=== PATIENT | male | born 1965 | race Caucasian/White ===

== ENCOUNTER 2016-10-21 09:52 | Inpatient (IN) | payer SELFPAY ==
[~2016-10-21] VITALS: Ht 167.6 cm; Wt 52.6 kg
[2016-10-21 10:05] VITALS: BP 126/84; PULSE 86; RESP 16; TEMP 99.5; O2SAT 97
[2016-10-21] MEDS ORDERED: AMPICILLIN-SULBACTAM INJ 3 GM in SODIUM CHLORIDE 0.9% INJ 100 ML IV ONE (10:30)
[2016-10-21] MEDS ORDERED: CLINDAMYCIN INJ 900 MG in SODIUM CHLORIDE 0.9% INJ 100 ML IV ONE (10:30)
[2016-10-21] MEDS ORDERED: SODIUM CHLOR 0.9% 1000 ML INJ 1,000 ML IV ONE (10:30)
[2016-10-21 10:52] LABS: AUTOMATED NEUTROPHIL # 4.5 TH/MM3 (1.8-7.7); BASOPHIL % 0.3 % (0.0-2.0); EOSINOPHIL % 0.1 % (0.0-4.0); HEMATOCRIT 46.7 % (39.0-51.0); HEMO FLAGS DIFF FINAL; LYMPH % 10.3 % (9.0-44.0); LYMPHOCYTE # 0.6 TH/MM3 (1.0-4.8); MEAN CELL VOLUME 89.9 FL (80.0-100.0); MEAN CORPUSCULAR HEMOGLOBIN 29.1 PG (27.0-34.0); MEAN CORPUSCULAR HGB CONC 32.4 % (32.0-36.0); MONO % 10.1 % (0.0-8.0); NEUT % 79.2 % (16.0-70.0); PLATELET COUNT 193 TH/MM3 (150-450); RED CELL DISTRIBUTION WIDTH 13.3 % (11.6-17.2); WHITE BLOOD COUNT 5.7 TH/MM3 (4.0-11.0)
[2016-10-21 11:00] LABS: CHLORIDE 98 MEQ/L (98-107); POTASSIUM 3.6 MEQ/L (3.5-5.1); SODIUM (NA) 136 MEQ/L (136-145)
[2016-10-21 11:04] LABS: ANION GAP 9 MEQ/L (5-15); APTT (PATIENT) 31.6 SEC (24.3-30.1); BICARBONATE 29.4 MEQ/L (21.0-32.0); BLOOD UREA NITROGEN 15 MG/DL (7-18); PROTHROMBIN TIME - PATIENT 10.6 SEC (9.8-11.6)
[2016-10-21 11:07] LABS: ALT (GPT) 78 U/L (12-78); AST (GOT) 48 U/L (15-37); GLOMERULAR FILTRATION RATE 81 ML/MIN (>89)
[2016-10-21 11:08] LABS: TOTAL BILIRUBIN ADULT 0.4 MG/DL (0.2-1.0)
[2016-10-21 11:10] LABS: ALKALINE PHOSPHATASE 69 U/L (45-117)
[2016-10-21] MEDS ORDERED: HYDROmorphone HCL PF 1 MG/ML VIAL IV PUSH ONE ×2 (11:15→13:15)
[2016-10-21] MEDS ORDERED: IOHEXOL 350 MG/ML 10 ML VIAL (for RAD DIAG) IV ONE (11:20)
--- NOTE | 2016-10-21 11:55 | RADRPT ---
EXAM DATE/TIME: 10/21/2016 10:57 [facility] COMPARISON: No previous studies available for comparison. INDICATIONS : Left neck pain for 3 days. IV CONTRAST: 65 cc Omnipaque 350 (iohexol) IV RADIATION DOSE: 9.36 CTDIvol (mGy) MEDICAL HISTORY : None SURGICAL HISTORY : None. ENCOUNTER: Initial ACUITY: 3 days PAIN SCALE: 6/10 LOCATION: Left neck TECHNIQUE: Volumetric scanning of the neck was performed. Using automated exposure control and adjustment of th e mA and/or kV according to patient size, radiation dose was kept as low as reasonably achievable to obtain optimal diagnostic quality images. DICOM format image data is available electronically for r eview and comparison. FINDINGS: The examination demonstrates a 3.5 x 3.4 cm heterogeneously enhancing soft tissue/ mass involving the left parapharyngeal space and left tonsillar pillar. There is decreased attenuation centrally within this. This extends down inferiorly to involve the left side of the larynx. There are some moderately enlarged, enhancing nodes evident in the jugular norma chain on the left. The largest measures 1.6 x 0.6 CM. It is possible this represents tonsillar abscess however, these findings are concerning for malignancy.. The soft tissues of the nasopharynx are intact. The parotid and submandibular glands are intact. The visualized portions of sinuses clear. The limited portion of brain parenchyma visualized is unremarkable. The visualized osseous structures are intact. CONCLUSION: 1. The exam demonstrates a large area of fluctuant tissue/ mass involving the left tonsillar pillar, the parapharyngeal space on the left and extending down to the superior aspect of the left side of th e larynx. There are some enlarged, enhancing jugular nodes on the left as well. It is possible this r epresents tonsillar abscess however, These findings are suspicious for malignancy. 2. Note is made of a 1 cm node in the jugular norma chain on the right as well. This is indeterminate by CT imaging. Teofilo Wagner MD on October 21, 2016 at 11:41 Board Certified Radiologist. This report was verified electronically.
[2016-10-21 12:39] VITALS: BP 127/76; PULSE 80; RESP 18; O2SAT 97
--- NOTE | 2016-10-21 12:56 | PD ---
HPI Chief Complaint: Oral / Dental Pain or Problem Time Seen by Provider: 10:14 Travel History International Travel<30 days: No Contact w/Intl Traveler<30days: No Traveled to known affect area: No History of Present Illness HPI C/O 3 DAY H/O SORE THROAT, THOUGHT IT WAS STREP AND WENT TO URGENT CARE WHO RECC HE COME TO ER BECAUSE IT LOOK LIKE AN ABSCESS....PT DENIES FEVER, PAINFUL TO SWALLOW AND CANNOT EAT. PFSH Past Medical History Hx Anticoagulant Therapy: No Diabetes: No Social History Alcohol Use: Yes (SOCIALLY) Tobacco Use: No Substance Use: No Allergies-Medications (Allergen,Severity, Reaction): Coded Allergies: No Known Allergies (Unverified , 10/21/16) Reported Meds & Prescriptions Reported Meds & Active Scripts Active Review of Systems Except as stated in HPI: all other systems reviewed are Neg HENT: Positive: Sore Throat Physical Exam Narrative GENERAL: SKIN: Warm and dry. HEAD: Atraumatic. Normocephalic. EYES: Pupils equal and round. No scleral icterus. No injection or drainage. ENT: No nasal bleeding or discharge. Mucous membranes pink and moist. NECK: Trachea midline. No JVD. LEFT SIDED NECK MASS CARDIOVASCULAR: Regular rate and rhythm. RESPIRATORY: No accessory muscle use. Clear to auscultation. Breath sounds equal bilaterally. GASTROINTESTINAL: Abdomen soft, non-tender, nondistended. Hepatic and splenic margins not palpable. MUSCULOSKELETAL: Extremities without clubbing, cyanosis, or edema. No obvious deformities. NEUROLOGICAL: Awake and alert. No obvious cranial nerve deficits. Motor grossly within normal limits. Five out of 5 muscle strength in the arms and legs. Normal speech. PSYCHIATRIC: Appropriate mood and affect; insight and judgment normal. Data Data Last Documented VS Vital Signs Date Time Temp Pulse Resp B/P Pulse Ox O2 Delivery O2 Flow Rate FiO2 10/21/16 11:42 16 10/21/16 10:05 99.5 86 126/84 97 Orders Complete Blood Count With Diff (10/21/16 10:19) Comprehensive Metabolic Panel (10/21/16 10:19) Prothrombin Time / Inr (Pt) (10/21/16 10:19) Act Partial Throm Time (Ptt) (10/21/16 10:19) Ct Soft Tiss Neck W Iv Cont (10/21/16 ) Ampicillin-Sulbactam Inj (Unasyn Inj) (10/21/16 10:30) Clindamycin Inj (Cleocin Inj) (10/21/16 10:30) Lactic Acid Sepsis Protocol (10/21/16 10:19) Sodium Chlor 0.9% 1000 Ml Inj (Ns 1000 M (10/21/16 10:30) Blood Culture (10/21/16 10:19) Hydromorphone Pf Inj (Dilaudid Pf Inj) (10/21/16 11:15) Iohexol 350 Inj (Omnipaque 350 Inj) (10/21/16 11:20) Admit Order (Ed Use Only) (10/21/16 12:12) Labs Laboratory Tests Test 10/21/16 10:40 White Blood Count 5.7 TH/MM3 Red Blood Count 5.20 MIL/MM3 Hemoglobin 15.1 GM/DL Hematocrit 46.7 % Mean Corpuscular Volume 89.9 FL Mean Corpuscular Hemoglobin 29.1 PG Mean Corpuscular Hemoglobin 32.4 % Concent Red Cell Distribution Width 13.3 % Platelet Count 193 TH/MM3 Mean Platelet Volume 7.7 FL Neutrophils (%) (Auto) 79.2 % Lymphocytes (%) (Auto) 10.3 % Monocytes (%) (Auto) 10.1 % Eosinophils (%) (Auto) 0.1 % Basophils (%) (Auto) 0.3 % Neutrophils # (Auto) 4.5 TH/MM3 Lymphocytes # (Auto) 0.6 TH/MM3 Monocytes # (Auto) 0.6 TH/MM3 Eosinophils # (Auto) 0.0 TH/MM3 Basophils # (Auto) 0.0 TH/MM3 CBC Comment DIFF FINAL Differential Comment Prothrombin Time 10.6 SEC Prothromb Time International 1.0 RATIO Ratio Activated Partial 31.6 SEC Thromboplast Time Sodium Level 136 MEQ/L Potassium Level 3.6 MEQ/L Chloride Level 98 MEQ/L Carbon Dioxide Level 29.4 MEQ/L Anion Gap 9 MEQ/L Blood Urea Nitrogen 15 MG/DL Creatinine 0.97 MG/DL Estimat Glomerular Filtration 81 ML/MIN Rate Random Glucose 96 MG/DL Lactic Acid Level 1.0 mmol/L Calcium Level 8.9 MG/DL Total Bilirubin 0.4 MG/DL Aspartate Amino Transf 48 U/L (AST/SGOT) Alanine Aminotransferase 78 U/L (ALT/SGPT) Alkaline Phosphatase 69 U/L Total Protein 7.5 GM/DL Albumin 3.5 GM/DL MDM Medical Decision Making Medical Screen Exam Complete: Yes Emergency Medical Condition: Yes Medical Record Reviewed: Yes Differential Diagnosis STREP THROAT V PERITONSILLAR ABSCESS V MASS/INFLAMMATORY MALIGNANCY Narrative Course INITIALLY EVALUATED AND TREATED FOR WHAT APPEARS TO BE A PERITONSILLAR ABSCESS, HOWEVER UPON CT NECK, RADIOLOGIST RAISES QUESTION ABOUT MASS/MALIGNANCY. PATIENT WAS ADMITTED FOR OBSERVATION, CONSULTATION BY ENT AND ONCOLOGY FOR BIOPSY TO SETTLE THE MATTER OF MALIGNANCY VS ABSCESS. PATIENT WAS GIVEN STEROID AND DUAL ABX PRIOR TO CONSULTATION AND ADMISSION Physician Communication Physician Communication DISCUSSED FULLY WITH DR HUNTER WHO AGREED WITH INITIAL ABX/STEROID TREATMENT AND WILL FOLLOW UP INPATIENT FOR POSSIBLE BIOPSY...D/W HEPAS ADMITTING WELL. Diagnosis Primary Impression: PERITONSILLAR ABSCESS VS MASS Additional Impression: POOR PO TOLERANCE Scripts Amoxicillin-Clavulanate (Augmentin)875-125 Mg Tab1 Tab PO BID 7 Days Ref 0 Prov:Corey He MD 10/23/16 [facility] Garcia MD Oct 21, 2016 12:56
[2016-10-21] MEDS ORDERED: LACTULOSE SYRUP 20 GM/30 ML CUP PO PRN (13:15)
[2016-10-21] MEDS ORDERED: ACETAMINOPHEN 325 MG TAB PO PRN (13:15)
[2016-10-21] MEDS ORDERED: DEXAMETHASONE SOD PHOS 20 MG/5 ML VIAL IM ONE (13:15)
[2016-10-21] MEDS ORDERED: ONDANSETRON HCL 4 MG/2 ML VIAL IVP PRN (13:15)
[2016-10-21] MEDS ORDERED: MAGNESIUM HYDROXIDE SUSP 30 ML CUP PO PRN (13:15)
[2016-10-21] MEDS ORDERED: SENNOSIDES 8.6 MG TAB PO PRN (13:15)
[2016-10-21] MEDS ORDERED: BISACODYL 10 MG SUPP RECTAL PRN (13:15)
[2016-10-21] MEDS ORDERED: NALOXONE HCL 0.4 MG/ML AMP IV PRN ×2 (13:15)
[2016-10-21] MEDS ORDERED: SODIUM CHLORIDE 0.9% FLUSH 10 ML FLUSH IV FLUSH PRN (13:15)
[2016-10-21] MEDS ORDERED: MORPHINE SULFATE 8 MG/ML INJ IV PUSH PRN (13:45)
[2016-10-21] MEDS: D5-1/2 NS + KCL 10 MEQ INJ 1,000 ML IV SCH ×2 (14:06→23:39)
--- NOTE | 2016-10-21 14:10 | HHI.HP ---
HPI Service [facility] Primary Care Physician No Primary Care Physician Admission Diagnosis TONSILLAR MASS/NECK MASS POSSIBLE MALIGNANCY, POOR PO TOLERANCE Diagnoses: Travel History International Travel<30 Days: No Contact w/Intl Traveler <30 Da: No Traveled to Known Affected Are: No History of Present Illness 51-year-old male with no known medical history presented to the ER with complaint of worsening sore throat and inability to swallow. Patient reports his symptoms started about 4 days ago when he thought he had strep throat, he presented to an urgent care and was told to go to the emergency room. CAT scan in the emergency room revealed a large fluctuant tissue/mass involving the left tonsillar pillar extending down to the superior aspect of the left side of the larynx. This could possibly be an abscess. However this findings are also suspicious for malignancy. Patient did report having persistent issues with back tooth including a reported tooth abscess about 4 weeks ago. However this was not treated because he does not have insurance. ENT, Dr. Jiang was consulted by ED physician who recommended admission for biopsy and oncology consultation. On my evaluation, the patient pain and swelling improved since arrival. He denies any fevers but admits to night sweats. He reports that his spouse committed suicide 6 weeks ago and we went back to smoking about a pack a day. Prior to that he has been smoking on and off for the past 20 years. He reports a 20 pound weight loss over the past 3 months. Review of Systems Constitutional: COMPLAINS OF: Weight loss, Night Sweats Ears, nose, mouth, throat: COMPLAINS OF: Oral lesions, Throat pain, Hoarseness Except as stated in HPI: all other systems reviewed are Neg Past Family Social History Past Medical History None Past Surgical History None Reported Medications Reported Meds & Active Scripts Active No Active Prescriptions or Reported Medications Allergies: Coded Allergies: No Known Allergies (Unverified , 10/21/16) Family History Mother of "possible lung cancer" Father with history of diabetes Social History Patient smoked tobacco on and off for the past 20 years. Admits to occasional alcohol. Denies illicit drugs. Spouse 6 weeks ago, he committed suicide. Patient reports he is under a lot of stress. Physical Exam Vital Signs Vital Signs Date Time Temp Pulse Resp B/P Pulse Ox O2 Delivery O2 Flow Rate FiO2 10/21/16 12:39 80 18 127/76 97 Room Air 10/21/16 11:42 16 10/21/16 10:05 99.5 86 16 126/84 97 Physical Exam GENERAL: This is a well-nourished, well-developed patient, in no apparent distress. SKIN: No rashes, ecchymoses or lesions. Cool and dry. HEAD: Atraumatic. Normocephalic. No temporal or scalp tenderness. EYES: Pupils equal round and reactive. Extraocular motions intact. No scleral icterus. No injection or drainage. ENT: Marked swelling of the left tonsil without obvious drainage. There is loss of anatomical landmarks, this is encroaching the uvula, however airway still patent. NECK: Multiple tender lymphadenopathy involving the left cervical chain. CARDIOVASCULAR: Regular rate and rhythm without murmurs, gallops, or rubs. RESPIRATORY: Clear to auscultation. Breath sounds equal bilaterally. No wheezes , rales, or rhonchi. GASTROINTESTINAL: Abdomen soft, non-tender, nondistended. No hepato-splenomegaly , or palpable masses. No guarding. MUSCULOSKELETAL: Extremities without clubbing, cyanosis, or edema. No joint tenderness, effusion, or edema noted. No calf tenderness. Negative Homans sign bilaterally. NEUROLOGICAL: Awake and alert. Cranial nerves II through XII intact. Motor and sensory grossly within normal limits. Five out of 5 muscle strength in all muscle groups. Normal speech. Laboratory Laboratory Tests Test 10/21/16 10:40 White Blood Count 5.7 Red Blood Count 5.20 Hemoglobin 15.1 Hematocrit 46.7 Mean Corpuscular Volume 89.9 Mean Corpuscular Hemoglobin 29.1 Mean Corpuscular Hemoglobin 32.4 Concent Red Cell Distribution Width 13.3 Platelet Count 193 Mean Platelet Volume 7.7 Neutrophils (%) (Auto) 79.2 Lymphocytes (%) (Auto) 10.3 Monocytes (%) (Auto) 10.1 Eosinophils (%) (Auto) 0.1 Basophils (%) (Auto) 0.3 Neutrophils # (Auto) 4.5 Lymphocytes # (Auto) 0.6 Monocytes # (Auto) 0.6 Eosinophils # (Auto) 0.0 Basophils # (Auto) 0.0 CBC Comment DIFF FINAL Differential Comment Prothrombin Time 10.6 Prothromb Time International 1.0 Ratio Activated Partial 31.6 Thromboplast Time Sodium Level 136 Potassium Level 3.6 Chloride Level 98 Carbon Dioxide Level 29.4 Anion Gap 9 Blood Urea Nitrogen 15 Creatinine 0.97 Estimat Glomerular Filtration 81 Rate Random Glucose 96 Lactic Acid Level 1.0 Calcium Level 8.9 Total Bilirubin 0.4 Aspartate Amino Transf 48 (AST/SGOT) Alanine Aminotransferase 78 (ALT/SGPT) Alkaline Phosphatase 69 Total Protein 7.5 Albumin 3.5 Date/Time Procedure Status Source Growth 10/21/16 10:46 Aerobic Blood Culture Received Blood Peripheral Pending 10/21/16 10:46 Anaerobic Blood Culture Received Blood Peripheral Pending Result Diagram: 10/21/16 1040 10/21/16 1040 Imaging Last Impressions Neck CT 10/21/16 0000 Signed Impressions: Service Date/Time: Friday, October 21, 2016 10:57 - CONCLUSION: 1. The exam demonstrates a large area of fluctuant tissue/ mass involving the left tonsillar pillar, the parapharyngeal space on the left and extending down to the superior aspect of the left side of the larynx. There are some enlarged, enhancing jugular nodes on the left as well. It is possible this represents tonsillar abscess however, These findings are suspicious for malignancy. 2. Note is made of a 1 cm node in the jugular norma chain on the right as well. This is indeterminate by CT imaging. Teofilo Wagner MD Assessment and Plan Problem List: (1) Neck mass ICD Code: R22.1 Status: Acute (2) Tonsillar mass ICD Code: R22.0 Status: Acute Assessment and Plan 51-year-old male admitted with a parapharyngeal and tonsillar mass, patient did report recent history of tooth abscess. This could be abscess but malignancy is also a possibility. ENT consulted who recommended admission for biopsy. Admit to inpatient. Continue IV Unasyn until infectious process is ruled out. Follow blood cultures. Start Decadron to help with swelling Consult oncology IV fluid for hydration. Liquid diet. Pain control with Percocet and morphine as needed. Consult case management GI prophylaxis: PPI. Stool softener PRN constipation. DVT PPx: SCDs. Discussed Condition With Dr. Garcia Physician Certification 2 Midnight Certification Type: Admission for Inpatient Services Order for Inpatient Services The services are ordered in accordance with Medicare regulations or non- Medicare payer requirements, as applicable. In the case of services not specified as inpatient-only, they are appropriately provided as inpatient services in accordance with the 2-midnight benchmark. Estimated LOS (days): 3 days is the estimated time the patient will need to remain in the hospital, assuming treatment plan goals are met and no additional complications. Post-Hospital Plan: Home Tank Mora MD Oct 21, 2016 14:10
[2016-10-21 15:14] VITALS: BP 125/72; PULSE 72; RESP 19; TEMP 97.8; O2SAT 98
[2016-10-21] MEDS ORDERED: AMPICILLIN-SULBACTAM INJ 1,500 MG VIAL IM SCH (16:00)
[2016-10-21] MEDS: DEXAMETHASONE SOD PHOS 4 MG/ML VIAL IV PUSH SCH ×2 (16:39→23:39)
[2016-10-21] MEDS: AMPICILLIN/SULBAC 1500 MG/NS 100 ML IV SCH ×4 (16:39→21:24)
[2016-10-21] MEDS: SODIUM CHLORIDE 0.9% FLUSH 10 ML FLUSH IV FLUSH SCH (19:45)
[2016-10-21] MEDS: DOCUSATE SODIUM 50 MG/SENNA 8.6 MG TAB PO SCH (19:45)
[2016-10-21 20:00] VITALS: BP 142/75; PULSE 69; RESP 18; TEMP 98; O2SAT 98
[2016-10-22] VITALS: BP 113/74; PULSE 61; RESP 20; TEMP 95.8; O2SAT 96
[2016-10-22] MEDS: AMPICILLIN/SULBAC 1500 MG/NS 100 ML IV SCH ×8 (03:56→21:08)
[2016-10-22 04:00] VITALS: BP 127/84; PULSE 56; RESP 20; TEMP 95.3; O2SAT 97
[2016-10-22] MEDS: DEXAMETHASONE SOD PHOS 4 MG/ML VIAL IV PUSH SCH ×4 (05:14→23:09)
[2016-10-22 06:06] LABS: AUTOMATED NEUTROPHIL # 4.1 TH/MM3 (1.8-7.7); BASOPHIL % 0.1 % (0.0-2.0); EOSINOPHIL % 0.1 % (0.0-4.0); HEMATOCRIT 41.8 % (39.0-51.0); HEMO FLAGS DIFF FINAL; LYMPH % 8.9 % (9.0-44.0); LYMPHOCYTE # 0.5 TH/MM3 (1.0-4.8); MEAN CELL VOLUME 88.2 FL (80.0-100.0); MEAN CORPUSCULAR HEMOGLOBIN 29.6 PG (27.0-34.0); MEAN CORPUSCULAR HGB CONC 33.6 % (32.0-36.0); MONO % 9.5 % (0.0-8.0); NEUT % 81.4 % (16.0-70.0); PLATELET COUNT 171 TH/MM3 (150-450); RED BLOOD COUNT 4.73 MIL/MM3 (4.50-5.90); RED CELL DISTRIBUTION WIDTH 13.4 % (11.6-17.2); WHITE BLOOD COUNT 5.1 TH/MM3 (4.0-11.0)
[2016-10-22 06:33] LABS: POTASSIUM 4.4 MEQ/L (3.5-5.1)
[2016-10-22 08:00] VITALS: BP 123/83; PULSE 65; RESP 17; TEMP 97; O2SAT 99
[2016-10-22] MEDS: D5-1/2 NS + KCL 10 MEQ INJ 1,000 ML IV SCH ×3 (09:15→21:07)
[2016-10-22] MEDS: DOCUSATE SODIUM 50 MG/SENNA 8.6 MG TAB PO SCH ×2 (09:16→20:29)
[2016-10-22] MEDS: PANTOPRAZOLE SOD 40 MG DELAYED RELEASE TAB PO SCH (09:17)
[2016-10-22] MEDS: SODIUM CHLORIDE 0.9% FLUSH 10 ML FLUSH IV FLUSH SCH ×2 (09:19→20:28)
--- NOTE | 2016-10-22 10:12 | MB ---
cc: MOE SHARMA DATE OF CONSULTATION: 10/21/2016 DATE OF : 1965. REASON FOR CONSULTATION Patient with pharyngeal mass. CHIEF COMPLAINT Difficulty swallowing, weight loss. HISTORY OF PRESENT ILLNESS This is a 51-year-old male who has no previous medical history, who presented to the emergency department with a sore throat and dysphagia. He has been experiencing sore throat for quite some time but it became worse over the past 3-4 days. He has also been losing weight, over the last six months, he has lost approximately 20 pounds. He states that he is unable to swallow food. In the emergency room on physical exam he was found to have large mass which was visible in the left pharyngeal region. Left pharyngeal base of the tongue lesion. Tonsils were not visible. CT of the neck with IV contrast demonstrated a 3.5 x 3.4 cm heterogeneously enhancing soft tissue mass involving the left parapharyngeal space and left tonsillar pillar. This mass extended down inferiorly to involve the left side of the larynx. There were some moderately enlarged enhancing nodes evident in the jugular norma chain on the left, the largest measured 1.6 x 0.6 cm. There was a possibility of an abscess but it is highly suspicious for malignancy. There is a 1 cm node in the jugular norma chain on the right as well. I have been consulted to make further recommendations. The patient states that he recently started smoking. He does have past history of tobacco abuse but quit many years ago. His mother had some sort of cancer, he is unsure. He does not follow up with primary care physician regularly. He states that his spouse 6 weeks ago. REVIEW OF SYSTEMS A comprehensive 14-point review of systems was completed which is negative except as described in the HPI. PAST MEDICAL HISTORY None. PAST SURGICAL HISTORY None. MEDICATIONS None at home. He is now on: 1. Protonix 40 mg daily. 2. Senna docusate one tablet p.o. b.i.d. 3. Decadron 4 mg IV q.6 h. 4. Ampicillin/sulbactam 1500 mg IV q.6 h. 5. Morphine IV 4 mg IV q.3 hours p.r.n. pain. 6. Tylenol 650 p.o. q.4 hours p.r.n. 7. Zofran 4 mg IV q.6 h. 8. Milk of magnesia 30 ccs p.o. p.r.n. 9. Senna 17.2 mg p.o. b.i.d. 10. Bisacodyl 10 mg suppository as needed. 11. Lactulose 30 ccs p.o. p.r.n. 12. Percocet 5/325 one tablet p.o. q.4 h p.r.n. ALLERGIES NO KNOWN DRUG ALLERGIES. PHYSICAL EXAMINATION VITAL SIGNS: Blood pressure is 125/72, pulse in the 70s, temperature is 97.8, O2 sats are 98% on room air. GENERAL: Thin cachectic individual, in no apparent distress. HEENT: Pupils are equal, round, reactive to light. EOMI. There is a large mass visible in the oral cavity. Tonsils are not visible. There is significant amount of erythema. NECK: Neck is supple. No JVD, no bruits. No lymphadenopathy. CHEST: Clear to auscultation bilaterally. CARDIAC: S1-S2, regular rate and rhythm. ABDOMEN: Soft, nontender, nondistended. Bowel sounds are present. EXTREMITIES: Without any edema, erythema or cyanosis. SKIN: Without any petechiae, lesion or bruises. NEURO: No focal deficits. PSYCHIATRIC: Mood and affect is appropriate. LABORATORY DATA WBC 5.7, hemoglobin 15.1, platelet count 193. Serum chemistries show sodium of 136, potassium 3.6, CO2 29.4, BUN 15, creatinine 0.97, GFR 81, lactic acid 1, calcium 8.9, total bilirubin 0.4, AST is 48, ALT is 78, alk phos is 69, total protein 7.5, albumin is 3.5. Coags show PT of 10.6, INR 1, PTT of 31.6. IMAGING Reviewed in the EMR. ASSESSMENT/PLAN This is a 51-year-old male who presents to the emergency department with dysphagia, sore throat, weight loss of greater than 20 pounds over 6 months, night sweats and pain. He underwent CT imaging which confirmed a large mass in the parapharyngeal space. 1. A 3.5 x 3.4 cm enhancing soft tissue mass involving the left parapharyngeal space and left tonsillar pillar. This is highly suspicious for malignancy. It appears to be locally advanced and is extending down inferiorly to involve the left side of the pharynx. A jugular chain lymph node is also enlarged. I had a long discussion with the patient. I explained to him that in order to make a diagnosis we need to obtain a biopsy. I would recommend consulting ENT. IR could also be consulted for a CT-guided biopsy of this mass. If this is confirmed malignancy, I explained to him that treatment options could include extensive surgery versus concurrent chemotherapy and radiation. I explained to him in certain situations we treat with neoadjuvant concurrent chemotherapy and radiation followed by surgery. He understood this. He is agreeable to proceeding with a biopsy. We will need to obtain a CT of the chest, abdomen and pelvis with contrast to rule out any metastatic disease. Thank you for allowing me to participate in the care of this patient. I will continue to follow this patient along. Please do not hesitate to contact me should you have any questions. MD WALE Bob/MEMO /1:02 AM /9:42 AM
--- NOTE | 2016-10-22 11:44 | HHI.PR ---
Subjective Remarks Patient reports he is feeling better. He is able to swallow better. Experiencing less throat pain. Discussed with RN. Invasive radiology reports CT-guided biopsy cannot be done and referred to ENT Objective Vitals Vital Signs Date Time Temp Pulse Resp B/P Pulse Ox O2 Delivery O2 Flow Rate FiO2 10/22/16 08:00 97.0 65 17 123/83 99 10/22/16 04:00 95.3 56 20 127/84 97 10/22/16 00:00 95.8 61 20 113/74 96 10/21/16 20:00 98.0 69 18 142/75 98 10/21/16 15:14 97.8 72 19 125/72 98 10/21/16 14:25 80 16 97 10/21/16 12:39 80 18 127/76 97 Room Air I/O 10/21/16 10/21/16 10/21/16 10/22/16 10/22/16 10/22/16 07:00 15:00 23:00 07:00 15:00 23:00 Intake Total 200 ml 1346 ml Balance 200 ml 1346 ml Intake Oral 200 ml 0 ml IV Total 1346 ml # Voids 3 Result Diagram: 10/22/16 0545 10/22/16 0545 Imaging Last Impressions Neck CT 10/21/16 0000 Signed Impressions: Service Date/Time: Friday, October 21, 2016 10:57 - CONCLUSION: 1. The exam demonstrates a large area of fluctuant tissue/ mass involving the left tonsillar pillar, the parapharyngeal space on the left and extending down to the superior aspect of the left side of the larynx. There are some enlarged, enhancing jugular nodes on the left as well. It is possible this represents tonsillar abscess however, These findings are suspicious for malignancy. 2. Note is made of a 1 cm node in the jugular norma chain on the right as well. This is indeterminate by CT imaging. Teofilo Wagner MD Objective Remarks GENERAL: This is a well-nourished, well-developed patient, in no apparent distress. ENT: Marked swelling of the left tonsil without obvious drainage. It is erythematous. There is loss of anatomical landmarks, this is encroaching the uvula, however airway still patent. NECK: Multiple tender lymphadenopathy involving the left cervical chain. CARDIOVASCULAR: Regular rate and rhythm without murmurs, gallops, or rubs. RESPIRATORY: Clear to auscultation. Breath sounds equal bilaterally. No wheezes , rales, or rhonchi. GASTROINTESTINAL: Abdomen soft, non-tender, nondistended. No hepato-splenomegaly , or palpable masses. No guarding. MUSCULOSKELETAL: Extremities without clubbing, cyanosis, or edema. NEUROLOGICAL: Awake and alert. Normal speech. A/P Problem List: (1) Neck mass ICD Code: R22.1 Status: Acute (2) Tonsillar mass ICD Code: R22.0 Status: Acute Assessment and Plan 51-year-old male admitted with a parapharyngeal and tonsillar mass, patient did report recent history of tooth abscess. This could be abscess but malignancy is also a possibility. ENT consulted who recommended admission for biopsy. Continue IV Unasyn until infectious process is ruled out. Follow blood cultures. Continue Decadron to help with swelling Appreciate oncology consult, lesions concerning for malignancy, CT of the chest , abdomen and pelvis ordered. - IR cannot be CT-guided biopsy and referred to ENT. ENT has been consulted. Continue IV fluid for hydration. Liquid diet. Pain control with Percocet and morphine as needed. Consult case management GI prophylaxis: PPI. Stool softener PRN constipation. DVT PPx: SCDs. Discharge Planning Continue inpatient workup and treatment for possible parapharyngeal malignancy versus infectious process. Patient needs evaluation by ENT and biopsy. Tank Mora MD Oct 22, 2016 11:44
[2016-10-22 12:00] VITALS: BP 118/85; PULSE 69; RESP 18; TEMP 97.6; O2SAT 96
[2016-10-22 16:00] VITALS: BP 118/73; PULSE 62; RESP 18; TEMP 98.1; O2SAT 94
[2016-10-22] MEDS ORDERED: IOHEXOL 350 MG/ML 10 ML VIAL (for RAD DIAG) IV ONE (17:24)
--- NOTE | 2016-10-22 17:42 | RADRPT ---
EXAM DATE/TIME: 10/22/2016 16:57 [facility] COMPARISON: CT SOFT TISSUE NECK W CONTRAST, October 21, 2016, 10:57. INDICATIONS : Parapharyngeal mass; evaluate for metastases. IV CONTRAST: 73 cc Omnipaque 350 (iohexol) IV ; Cumulative dose for multiple exams. RADIATION DOSE: 6.41 CTDIvol (mGy) ; Combined studies - Thorax/Abdomen/Pelvis MEDICAL HISTORY : None SURGICAL HISTORY : None. ENCOUNTER: Initial ACUITY: 1 day PAIN SCALE: 0/10 LOCATION: chest TECHNIQUE: Volumetric scanning of the chest was performed. Using automated exposure control and adjustment of t he mA and/or kV according to patient size, radiation dose was kept as low as reasonably achievable to obtain optimal diagnostic quality images. DICOM format image data is available electronically for review and comparison. Follow-up recommendations for incidentally detected pulmonary nodules are based at a minimum on nodul e size and patient risk factors according to Fleischner Society Guidelines. FINDINGS: The lungs are clear without infiltrate, nodule, or mass. There is no pleural effusion. No appreciab le pathological adenopathy is seen within the mediastinum. CONCLUSION: Unremarkable study. Gerald Calvert MD on October 22, 2016 at 17:37 Board Certified Radiologist. This report was verified electronically.
--- NOTE | 2016-10-22 17:45 | RADRPT ---
EXAM DATE/TIME: 10/22/2016 16:57 [place] COMPARISON: No previous studies available for comparison. INDICATIONS : Parapharyngeal mass; evaluate for metastases. IV CONTRAST: 73 cc Omnipaque 350 (iohexol) IV ; Cumulative dose for multiple exams. ORAL CONTRAST: No oral contrast ingested. RADIATION DOSE: 6.41 CTDIvol (mGy) ; Combined studies - Thorax/Abdomen/Pelvis MEDICAL HISTORY : None SURGICAL HISTORY : None. ENCOUNTER: Initial ACUITY: 1 day PAIN SCALE: 0/10 LOCATION: lower quadrant TECHNIQUE: Volumetric scanning of the abdomen and pelvis was performed. Using automated exposure control and ad justment of the mA and/or kV according to patient size, radiation dose was kept as low as reasonably achievable to obtain optimal diagnostic quality images. DICOM format image data is available electro nically for review and comparison. FINDINGS: CT Abdomen: The liver, spleen, pancreas, kidneys, adrenals are unremarkable. There is no evidence for any appreciable pathological adenopathy, free fluid, or bowel obstruction. CT pelvis: There is no evidence for mass, abscess formation, or any significant adenopathy within the pelvis. The prostate gland is inhomogeneous and measures 2.4 x 4.3 cm in AP and transverse diameters and nonspecific. There is facet arthrosis bilaterally worse on the right at L5-S1. Tiny 4-5 mm bone island is present in the left iliac bone. CONCLUSION: No evidence for metastatic disease. Gerald Calvert MD on October 22, 2016 at 17:40 Board Certified Radiologist. This report was verified electronically.
[2016-10-22] MEDS: oxyCODONE/ACETAMINOPHEN 5 MG/325 MG TAB PO PRN (17:46)
[2016-10-22 20:00] VITALS: BP 133/79; PULSE 61; RESP 16; TEMP 96.6; O2SAT 98
--- NOTE | 2016-10-22 23:27 | PD.ONC.PN ---
Objective Data Date Time Temp Pulse Resp B/P Pulse Ox O2 Delivery O2 Flow Rate FiO2 10/22/16 20:00 96.6 61 16 133/79 98 10/22/16 19:01 18 10/22/16 16:00 98.1 62 18 118/73 94 10/22/16 12:24 18 10/22/16 12:00 97.6 69 18 118/85 96 10/22/16 08:00 97.0 65 17 123/83 99 10/22/16 04:00 95.3 56 20 127/84 97 10/22/16 00:00 95.8 61 20 113/74 96 10/22/16 10/22/16 10/22/16 07:00 15:00 23:00 Intake Total 1346 ml 970 ml Output Total 250 ml Balance 1346 ml 720 ml Result Diagram: 10/22/16 0545 10/22/16 0545 Laboratory Results Laboratory Tests Test 10/22/16 05:45 White Blood Count 5.1 TH/MM3 Red Blood Count 4.73 MIL/MM3 Hemoglobin 14.0 GM/DL Hematocrit 41.8 % Mean Corpuscular Volume 88.2 FL Mean Corpuscular Hemoglobin 29.6 PG Mean Corpuscular Hemoglobin 33.6 % Concent Red Cell Distribution Width 13.4 % Platelet Count 171 TH/MM3 Mean Platelet Volume 8.0 FL Neutrophils (%) (Auto) 81.4 % Lymphocytes (%) (Auto) 8.9 % Monocytes (%) (Auto) 9.5 % Eosinophils (%) (Auto) 0.1 % Basophils (%) (Auto) 0.1 % Neutrophils # (Auto) 4.1 TH/MM3 Lymphocytes # (Auto) 0.5 TH/MM3 Monocytes # (Auto) 0.5 TH/MM3 Eosinophils # (Auto) 0.0 TH/MM3 Basophils # (Auto) 0.0 TH/MM3 CBC Comment DIFF FINAL Differential Comment Sodium Level 139 MEQ/L Potassium Level 4.4 MEQ/L Chloride Level 102 MEQ/L Carbon Dioxide Level 31.0 MEQ/L Anion Gap 6 MEQ/L Blood Urea Nitrogen 9 MG/DL Creatinine 0.76 MG/DL Estimat Glomerular Filtration 107 ML/MIN Rate Random Glucose 172 MG/DL Calcium Level 8.7 MG/DL Culture Results Microbiology Date/Time Procedure Status Source Growth 10/21/16 10:19 Aerobic Blood Culture Received Blood Peripheral Pending 10/21/16 10:19 Anaerobic Blood Culture Received Blood Peripheral Pending 10/21/16 10:40 Aerobic Blood Culture - Preliminary Resulted Blood Peripheral NO GROWTH IN 1 DAY 10/21/16 10:40 Anaerobic Blood Culture - Preliminary Resulted Blood Peripheral NO GROWTH IN 1 DAY 10/21/16 10:46 Aerobic Blood Culture - Preliminary Resulted Blood Peripheral NO GROWTH IN 1 DAY 10/21/16 10:46 Anaerobic Blood Culture - Preliminary Resulted Blood Peripheral NO GROWTH IN 1 DAY Imaging Studies Last [address] 10/22/16 0000 Signed Impressions: Service Date/Time: October 16:57 - CONCLUSION: Unremarkable study. Gerald Calvert MD Abdomen/Pelvis CT 10/22/16 0000 Signed Impressions: Service Date/Time: October 16:57 - CONCLUSION: No evidence for metastatic disease. Gerald Calvert MD Administered Medications Medications (Trade) Dose Ordered Sig/Joan Route PRN Reason Start Time Stop Time Status Last Admin Dose Admin Sodium Chloride (NS Flush) 2 ml BID IV FLUSH 10/21/16 21:00 10/22/16 09:19 Senna/Docusate Sodium (Ashley-Colace) 1 tab BID PO 10/21/16 21:00 10/22/16 09:16 Sennosides (Senokot) 17.2 mg Q12H PRN PO MODERATE - SEVERE CONSTIPATION 10/21/16 13:15 10/22/16 10:21 Morphine Sulfate (Morphine Inj) 4 mg Q3H PRN IV PUSH BREAKTHROUGH PAIN 10/21/16 13:45 10/22/16 12:19 Oxycodone/ Acetaminophen 1 tab 1 tab Q4H PRN PO PAIN GREATER THAN 5 10/21/16 13:15 10/22/16 17:46 Potassium Chloride/Dextrose/ Sod Cl (D5-1/2 NS + KCl 10 Meq Inj) 1,000 ml @ 100 mls/hr Q10H IV 10/21/16 13:15 10/22/16 21:07 Dexamethasone Sodium Phosphate 4 mg 4 mg Q6HR IV PUSH 10/21/16 18:00 10/22/16 23:09 Ampicillin Sodium/ Sulbactam Sodium/ Sodium Chloride (Unasyn Inj/NS Inj) 100 ml @ 200 mls/hr Q6H IV 10/21/16 16:00 10/22/16 21:08 Pantoprazole Sodium (Protonix) 40 mg DAILY PO 10/22/16 09:00 10/22/16 09:17 Assessment/Plan Problem List: (1) Neck mass Status: Acute (2) Tonsillar mass Status: Acute Dae Flowers MD Oct 22, 2016 23:27 EXTREMITIES: No cyanosis, or edema. MUSCULOSKELETAL: Adequate muscle tone. NEUROLOGICAL: No obvious focal deficit. Awake, alert, and oriented x3. PSYCHIATRIC: Appropriate mood and affect; insight and judgment normal. Dae Flowers MD Oct 22, 2016 23:27
--- NOTE | 2016-10-22 23:36 | PD.ONC.PN ---
Subjective Subjective Remarks SOME SWALLOWING DIFFICULTY/PAIN BETTER CONTROLLED CT GUIDED BIOPSY NOT POSSIBLE AWAITING ENT EVALUATION RESTING COMFORTABLY D/W RN Objective Data Date Time Temp Pulse Resp B/P Pulse Ox O2 Delivery O2 Flow Rate FiO2 10/22/16 20:00 96.6 61 16 133/79 98 10/22/16 19:01 18 10/22/16 16:00 98.1 62 18 118/73 94 10/22/16 12:24 18 10/22/16 12:00 97.6 69 18 118/85 96 10/22/16 08:00 97.0 65 17 123/83 99 10/22/16 04:00 95.3 56 20 127/84 97 10/22/16 00:00 95.8 61 20 113/74 96 10/22/16 10/22/16 10/22/16 07:00 15:00 23:00 Intake Total 1346 ml 970 ml Output Total 250 ml Balance 1346 ml 720 ml Result Diagram: 10/22/16 0545 10/22/16 0545 Laboratory Results Laboratory Tests Test 10/22/16 05:45 White Blood Count 5.1 TH/MM3 Red Blood Count 4.73 MIL/MM3 Hemoglobin 14.0 GM/DL Hematocrit 41.8 % Mean Corpuscular Volume 88.2 FL Mean Corpuscular Hemoglobin 29.6 PG Mean Corpuscular Hemoglobin 33.6 % Concent Red Cell Distribution Width 13.4 % Platelet Count 171 TH/MM3 Mean Platelet Volume 8.0 FL Neutrophils (%) (Auto) 81.4 % Lymphocytes (%) (Auto) 8.9 % Monocytes (%) (Auto) 9.5 % Eosinophils (%) (Auto) 0.1 % Basophils (%) (Auto) 0.1 % Neutrophils # (Auto) 4.1 TH/MM3 Lymphocytes # (Auto) 0.5 TH/MM3 Monocytes # (Auto) 0.5 TH/MM3 Eosinophils # (Auto) 0.0 TH/MM3 Basophils # (Auto) 0.0 TH/MM3 CBC Comment DIFF FINAL Differential Comment Sodium Level 139 MEQ/L Potassium Level 4.4 MEQ/L Chloride Level 102 MEQ/L Carbon Dioxide Level 31.0 MEQ/L Anion Gap 6 MEQ/L Blood Urea Nitrogen 9 MG/DL Creatinine 0.76 MG/DL Estimat Glomerular Filtration 107 ML/MIN Rate Random Glucose 172 MG/DL Calcium Level 8.7 MG/DL Culture Results Microbiology Date/Time Procedure Status Source Growth 10/21/16 10:19 Aerobic Blood Culture Received Blood Peripheral Pending 10/21/16 10:19 Anaerobic Blood Culture Received Blood Peripheral Pending 10/21/16 10:40 Aerobic Blood Culture - Preliminary Resulted Blood Peripheral NO GROWTH IN 1 DAY 10/21/16 10:40 Anaerobic Blood Culture - Preliminary Resulted Blood Peripheral NO GROWTH IN 1 DAY 10/21/16 10:46 Aerobic Blood Culture - Preliminary Resulted Blood Peripheral NO GROWTH IN 1 DAY 10/21/16 10:46 Anaerobic Blood Culture - Preliminary Resulted Blood Peripheral NO GROWTH IN 1 DAY Imaging Studies Last [address] 10/22/16 0000 Signed Impressions: Service Date/Time: October 16:57 - CONCLUSION: Unremarkable study. Gerald Calvert MD Abdomen/Pelvis CT 10/22/16 0000 Signed Impressions: Service Date/Time: October 16:57 - CONCLUSION: No evidence for metastatic disease. Gerald Calvert MD Administered Medications Medications (Trade) Dose Ordered Sig/Joan Route PRN Reason Start Time Stop Time Status Last Admin Dose Admin Sodium Chloride (NS Flush) 2 ml BID IV FLUSH 10/21/16 21:00 10/22/16 09:19 Senna/Docusate Sodium (Ashley-Colace) 1 tab BID PO 10/21/16 21:00 10/22/16 09:16 Sennosides (Senokot) 17.2 mg Q12H PRN PO MODERATE - SEVERE CONSTIPATION 10/21/16 13:15 10/22/16 10:21 Morphine Sulfate (Morphine Inj) 4 mg Q3H PRN IV PUSH BREAKTHROUGH PAIN 10/21/16 13:45 10/22/16 12:19 Oxycodone/ Acetaminophen 1 tab 1 tab Q4H PRN PO PAIN GREATER THAN 5 10/21/16 13:15 10/22/16 17:46 Potassium Chloride/Dextrose/ Sod Cl (D5-1/2 NS + KCl 10 Meq Inj) 1,000 ml @ 100 mls/hr Q10H IV 10/21/16 13:15 10/22/16 21:07 Dexamethasone Sodium Phosphate 4 mg 4 mg Q6HR IV PUSH 10/21/16 18:00 7/13/17 23:09 Ampicillin Sodium/ Sulbactam Sodium/ Sodium Chloride (Unasyn Inj/NS Inj) 100 ml @ 200 mls/hr Q6H IV 10/21/16 16:00 10/22/16 21:08 Pantoprazole Sodium (Protonix) 40 mg DAILY PO 10/22/16 09:00 10/22/16 09:17 Objective Remarks GENERAL: THIN CACHECTIC SKIN: Warm and dry. HEAD: Normocephalic. EYES: No scleral icterus. No injection or drainage. NECK: Supple, trachea midline. SHOTTY CERVICAL LN CARDIOVASCULAR: Regular rate and rhythm without murmurs. RESPIRATORY: Breath sounds equal bilaterally. No accessory muscle use. GASTROINTESTINAL: Abdomen soft, non-tender, nondistended. EXTREMITIES: No cyanosis, or edema. Assessment/Plan Problem List: (1) Neck mass Status: Acute (2) Tonsillar mass Status: Acute Assessment 51-year-old male who presents to the emergency department with dysphagia, sore throat, weight loss of greater than 20 pounds over 6 months, night sweats and pain. He underwent CT imaging which confirmed a large mass in the parapharyngeal space. 1. Left parapharyngeal space and left tonsillar pillar. - SUSPICIOUS FOR MALIGNANCY - AWAITING ENT EVALUATION FOR BIOPSY -CT ABDOMEN AND PELVIS AND CT CHEST ORDERED FOR STAGING 2.DYSPHAGIA: - SPEECH EVALUATION 3. PAIN CONTROL - AGREE WITH CURRENT MEDS D/W PATIENT AT LENGTH. D/W Dae Constantino MD Oct 22, 2016 23:36
[2016-10-23] VITALS: BP 107/61; PULSE 60; RESP 16; TEMP 96.1; O2SAT 98
[2016-10-23] MEDS: AMPICILLIN/SULBAC 1500 MG/NS 100 ML IV SCH ×4 (03:47→08:21)
[2016-10-23] MEDS: DEXAMETHASONE SOD PHOS 4 MG/ML VIAL IV PUSH SCH ×2 (05:51→11:10)
--- NOTE | 2016-10-23 06:40 | PD.CONS ---
History of Present Illness Service ENT Consult Requested By ED Reason for Consult Left tonsil and pharyngeal mass Primary Care Physician No Primary Care Physician Diagnoses: History of Present Illness 51 year old male presented with three day history of odynophagia and left neck pain. He showed a significant left neck mass on CT but WBC was not elevated. There was concern for inflammatory mass versus malignancy. He has been treated with IV steroids and antibiotics and he does report he is feeling much better. Review of Systems Ears, nose, mouth, throat: COMPLAINS OF: Oral lesions, Throat pain, DENIES: Nasal discharge, Hoarseness Past Family Social History Allergies: Coded Allergies: No Known Allergies (Unverified , 10/21/16) Physical Exam Vital Signs Vital Signs Date Time Temp Pulse Resp B/P Pulse Ox O2 Delivery O2 Flow Rate FiO2 10/23/16 00:00 96.1 60 16 107/61 98 10/22/16 20:00 96.6 61 16 133/79 98 10/22/16 19:01 18 10/22/16 16:00 98.1 62 18 118/73 94 10/22/16 12:24 18 10/22/16 12:00 97.6 69 18 118/85 96 10/22/16 08:00 97.0 65 17 123/83 99 Physical Exam GENERAL: This is a well-nourished, well-developed patient, in no apparent distress. SKIN: No rashes, ecchymoses or lesions. Cool and dry. HEAD: Atraumatic. Normocephalic. No temporal or scalp tenderness. EYES: Pupils equal round and reactive. Extraocular motions intact. No scleral icterus. No injection or drainage. ENT: Nose without bleeding, purulent drainage or septal hematoma. Throat without erythema, Left tonsil enlarged but mildly so, soft to palpation. Airway patent. NECK: Trachea midline. No JVD or lymphadenopathy. Supple, nontender, no meningeal signs. NEUROLOGICAL: Awake and alert. Laboratory Date/Time Procedure Status Source Growth 10/21/16 10:46 Aerobic Blood Culture - Preliminary Resulted Blood Peripheral NO GROWTH IN 1 DAY 10/21/16 10:46 Anaerobic Blood Culture - Preliminary Resulted Blood Peripheral NO GROWTH IN 1 DAY 10/21/16 10:19 Aerobic Blood Culture Received Blood Peripheral Pending 10/21/16 10:19 Anaerobic Blood Culture Received Blood Peripheral Pending Result Diagram: 10/22/16 0545 10/22/[address] reviewed. Assessment and Plan Assessment and Plan 51 year old feeling better after IV steroids and antibiotics. Will plan bedside biopsy today along with fiberoptic exam. If exam appears benign he could go home and follow as outpatient. If this is inflammatory and not malignant, it is unusual that he did not mount a significant white count. He may need work up for this if there are any possible issues for immunosuppression.OK to eat, local biopsy this afternoon. Risks and benefits reviewed with patient. Warren Jiang MD Oct 23, 2016 06:40
[2016-10-23] MEDS: PANTOPRAZOLE SOD 40 MG DELAYED RELEASE TAB PO SCH (08:21)
[2016-10-23] MEDS: SODIUM CHLORIDE 0.9% FLUSH 10 ML FLUSH IV FLUSH SCH (08:21)
[2016-10-23] MEDS: DOCUSATE SODIUM 50 MG/SENNA 8.6 MG TAB PO SCH (08:21)
[2016-10-23 09:02] VITALS: BP 122/71; PULSE 52; RESP 19; TEMP 96.4; O2SAT 97
[2016-10-23] MEDS: D5-1/2 NS + KCL 10 MEQ INJ 1,000 ML IV SCH (11:10)
[2016-10-23] MEDS: oxyCODONE/ACETAMINOPHEN 5 MG/325 MG TAB PO PRN ×2 (11:16→15:36)
--- NOTE | 2016-10-23 11:47 | HHI.PR ---
Objective Vitals Vital Signs Date Time Temp Pulse Resp B/P Pulse Ox O2 Delivery O2 Flow Rate FiO2 10/23/16 09:02 96.4 52 19 122/71 97 10/23/16 00:00 96.1 60 16 107/61 98 10/22/16 20:00 96.6 61 16 133/79 98 10/22/16 19:01 18 10/22/16 16:00 98.1 62 18 118/73 94 10/22/16 12:24 18 10/22/16 12:00 97.6 69 18 118/85 96 I/O 10/22/16 10/22/16 10/22/16 10/23/16 10/23/16 10/23/16 07:00 15:00 23:00 07:00 15:00 23:00 Intake Total 1346 ml 970 ml 3425 ml Output Total 250 ml 500 ml Balance 1346 ml 720 ml 2925 ml Intake Oral 0 ml 970 ml IV Total 1346 ml 3425 ml Output Urine Total 250 ml 500 ml # Voids 3 # Bowel Movements 0 0 Result Diagram: 10/22/16 0545 10/22/16 0545 A/P Problem List: (1) Neck mass ICD Code: R22.1 Status: Acute (2) Tonsillar mass ICD Code: R22.0 Status: Acute Corey He MD Oct 23, 2016 11:47
[2016-10-23 13:01] VITALS: BP 135/81; PULSE 53; RESP 19; TEMP 96.6; O2SAT 99
--- NOTE | 2016-10-23 15:29 | HHI.PR ---
Subjective Remarks after informed consent was completed, a biopsy of the left tonsil was completed under local at the bedside. Objective Procedure: Tonsil biopsy Local 1 % Xylocaine with epinephrine Blood loss nil Specimen, LEFT tonsil to pathology Tolerated well. Vital Signs Date Time Temp Pulse Resp B/P Pulse Ox O2 Delivery O2 Flow Rate FiO2 10/23/16 13:01 96.6 53 19 135/81 99 10/23/16 09:02 96.4 52 19 122/71 97 10/23/16 00:00 96.1 60 16 107/61 98 10/22/16 20:00 96.6 61 16 133/79 98 10/22/16 19:01 18 10/22/16 16:00 98.1 62 18 118/73 94 I/O 10/22/16 10/22/16 10/22/16 10/23/16 10/23/16 10/23/16 06:59 14:59 22:59 06:59 14:59 22:59 Intake Total 1346 ml 970 ml 3425 ml 871 ml Output Total 250 ml 500 ml Balance 1346 ml 720 ml 2925 ml 871 ml Intake Oral 0 ml 970 ml IV Total 1346 ml 3425 ml 871 ml Output Urine Total 250 ml 500 ml # Voids 3 # Bowel Movements 0 0 Result Diagram: 10/22/16 0545 10/22/16 0545 Assessment and Plan Assessment and Plan 51 year old feeling better after IV steroids and antibiotics. Left tonsil biopsy completed. This really looks like an infection and he is essentially resolved. Wrote a script for 1 week of Augmentin 875 mg BID. Follow with me next week in the office for result. Warren Jiang MD Oct 23, 2016 15:29
[2016-10-23] MEDS ORDERED: AUGM875T3 PO (15:58)
--- NOTE | 2016-10-23 16:00 | HHI.DCPOC ---
Discharge Care Plan Diagnosis: (1) Infection of tonsil (2) Tonsillar mass Goals to Promote Your Health * To prevent worsening of your condition and complications * To maintain your health at the optimal level Directions to Meet Your Goals Take your medications as prescribed Follow your dietary instruction Follow activity as directed Keep your appointments as scheduled Take your immunizations and boosters as scheduled If your symptoms worsen call your PCP, if no PCP go to Urgent Care Center or Emergency Room Smoking is Dangerous to Your Health. Avoid second hand smoke Call the 24-hour hour crisis hotline for domestic abuse at Corey He MD Oct 23, 2016 16:00
--- NOTE | 2016-10-23 16:03 | HHI.DS ---
Discharge Summary Admission Date Oct 21, 2016 at 12:14 Discharge Date: Oct 23, 2016 Admitting Diagnosis TONSILLAR MASS/NECK MASS POSSIBLE MALIGNANCY, POOR PO TOLERANCE (1) Tonsillar abscess ICD Code: J36 Diagnosis: Principal (2) Tonsillar mass ICD Code: R22.0 Diagnosis: Principal Procedures biopsy of left tonsil. Brief History - From Admission 51-year-old male with no known medical history presented to the ER with complaint of worsening sore throat and inability to swallow. Patient reports his symptoms started about 4 days ago when he thought he had strep throat, he presented to an urgent care and was told to go to the emergency room. CAT scan in the emergency room revealed a large fluctuant tissue/mass involving the left tonsillar pillar extending down to the superior aspect of the left side of the larynx. This could possibly be an abscess. However this findings are also suspicious for malignancy. Patient did report having persistent issues with back tooth including a reported tooth abscess about 4 weeks ago. However this was not treated because he does not have insurance. ENT, Dr. Jiang was consulted by ED physician who recommended admission for biopsy and oncology consultation. On my evaluation, the patient pain and swelling improved since arrival. He denies any fevers but admits to night sweats. He reports that his spouse committed suicide 6 weeks ago and we went back to smoking about a pack a day. Prior to that he has been smoking on and off for the past 20 years. He reports a 20 pound weight loss over the past 3 months. CBC/BMP: 10/22/16 0545 10/22/16 0545 Significant Findings Laboratory Tests Test 10/21/16 10/22/16 10:40 05:45 Neutrophils (%) (Auto) 79.2 % 81.4 % (16.0-70.0) (16.0-70.0) Monocytes (%) (Auto) 10.1 % 9.5 % (0.0-8.0) (0.0-8.0) Lymphocytes # (Auto) 0.6 TH/MM3 0.5 TH/MM3 (1.0-4.8) (1.0-4.8) Activated Partial 31.6 SEC Thromboplast Time (24.3-30.1) Estimat Glomerular Filtration 81 ML/MIN (>89) Rate Aspartate Amino Transf 48 U/L (15-37) (AST/SGOT) Lymphocytes (%) (Auto) 8.9 % (9.0-44.0) Random Glucose 172 MG/DL (74-106) Imaging Last Impressions Chest CT 10/22/16 0000 Signed Impressions: Service Date/Time: , October 22, 2016 16:57 - CONCLUSION: Unremarkable study. Gerald Calvert MD Abdomen/Pelvis CT 10/22/16 0000 Signed Impressions: Service Date/Time: , October 22, 2016 16:57 - CONCLUSION: No evidence for metastatic disease. Gerald Calvert MD Neck CT 10/21/16 0000 Signed Impressions: Service Date/Time: Friday, October 21, 2016 10:57 - CONCLUSION: 1. The exam demonstrates a large area of fluctuant tissue/ mass involving the left tonsillar pillar, the parapharyngeal space on the left and extending down to the superior aspect of the left side of the larynx. There are some enlarged, enhancing jugular nodes on the left as well. It is possible this represents tonsillar abscess however, These findings are suspicious for malignancy. 2. Note is made of a 1 cm node in the jugular norma chain on the right as well. This is indeterminate by CT imaging. Teofilo Wagner MD PE at Discharge GENERAL: This is a well-nourished, well-developed patient, in no apparent distress. ENT: Marked swelling of the left tonsil without obvious drainage. It is erythematous. There is loss of anatomical landmarks, this is encroaching the uvula, however airway still patent. NECK: Multiple tender lymphadenopathy involving the left cervical chain. CARDIOVASCULAR: Regular rate and rhythm without murmurs, gallops, or rubs. RESPIRATORY: Clear to auscultation. Breath sounds equal bilaterally. No wheezes , rales, or rhonchi. GASTROINTESTINAL: Abdomen soft, non-tender, nondistended. No hepato-splenomegaly , or palpable masses. No guarding. MUSCULOSKELETAL: Extremities without clubbing, cyanosis, or edema. NEUROLOGICAL: Awake and alert. Normal speech. Pt update on day of discharge Patient states he feels much better. Mass has almost completely resolved. Denies odynophagia, denies fevers or chills. Hospital Course The patient was admitted with a parapharyngeal and tonsillar mass. Initially thought to be an abscess, however malignancy cannot be ruled out. The patient was initially admitted to the medical floor, start an IV Unasyn. Blood cultures obtained which were negative 2 upon day of discharge. Oncology and ENT consulted. ENT performed a left tonsillar biopsy and clear the patient to be discharge. ENT documented that the patient had most likely an abscess which was healing with antibiotics. The patient was discharged home on Augmentin 2 to be taken for 1 week. Patient recommended to follow-up with Dr. Jiang in one week. Pt Condition on Discharge: Good Discharge Disposition: Discharge Home Discharge Time: <= 30 minutes Discharge Instructions DIET: Follow Instructions for: As Tolerated, No Restrictions Speech Therapy-Diet Recommends: Soft Activities you can perform: Regular-No Restrictions Follow up Referrals: Ear Nose Throat - 1 Week with Warren Jiang MD New Medications: Amoxicillin-Clavulanate (Augmentin) 875-125 Mg Tab 1 TAB PO BID Infection Days 7 Ref 0 TAB Corey He MD Oct 23, 2016 16:03
== END 2016-10-23 16:32 | disposition home or self-care (01) | DRG 134 ==
LOC: PHED 09:52 → PHEDA 12:14 → PH3B 14:51
PROVIDERS: ADMIT Hospitalist; ATTEND Hospitalist
PROC: 0CBPXZX Excision of Tonsils, External Approach, Diagnostic (ICD-10-PCS; principal; 2016-10-23)
DX: J36 Peritonsillar abscess (principal); R13.10 Dysphagia, unspecified; F17.210 Nicotine dependence, cigarettes, uncomplicated; R22.0 Localized swelling, mass and lump, head
CPT/HCPCS: 70491; 71260; 74177; 80048; 80053; 83605; 85025; 85610; 85730; 87040; 88304; 88305; 96365; 96367; 96375; J0295; J1100; J1170; J2270; J3480; J7030; Q9967

== ENCOUNTER 2017-12-14 06:38 | Inpatient (IN) ==
[2017-12-14 06:48] VITALS: TEMP 97.8
--- NOTE | 2017-12-14 07:16 | ED ---
HPI General Chief complaint: Medical Clearance Stated complaint: medical complaint Time Seen by Provider: 12/14/17 07:06 Source: patient Mode of arrival: ambulatory Limitations: no limitations History of Present Illness HPI narrative: The patient is a 52-year-old male with no significant medical history presenting with complaint of foreign body in throat. Patient is not sure what it is he said he was sleeping he started feeling he was choking and there was something in his mouthk and he swallowed but he does not know what it may be. Denies any previous esophageal strictures or bolus impaction. Is unable to tolerate secretions. Onset (ago): hour(s) (2) Location: neck Radiation: non-radiation Severity: moderate Severity scale (1-10): 4 Relieving factors: none Exacerbating factors: eating Associated symptoms: denies other symptoms Related Data Allergies Allergy/AdvReac Type Severity Reaction Status Date / Time No Known Allergies Allergy Unverified 12/14/17 06:41 Review of Systems ROS: all other systems reviewed are negative [facility] Medical History Medical History No pertinent past medical history (Acute) Surgical History Surgical History No pertinent past surgical history (Acute) Social History Social History Substance History: Active Abuse Second Hand Smoke Exposure: No Smoking Status: Light tobacco smoker Tobacco Type: Cigarettes How Often Do You Have a Drink Containing Alcohol: Never Recent Travel in [facility] within the Last 8 Weeks: No Recent Out of Country Travel within the Last 8 Weeks: No Substance Abuse Detail Marijuana: Substance Use Status: Active Route Used Substance Abuse: Inhalation Reason for Use: Calm Down and Get High Immunization History Tetanus Immunization: Unsure Hx Influenza Vaccine This Season: No Exam Narrative Exam Narrative: GENERAL: Alert and oriented. SKIN: Focused skin assessment warm/dry. HEAD: Atraumatic. Normocephalic. EYES: Pupils equal and round. No scleral icterus. No injection or drainage. ENT: No nasal bleeding or discharge. Mucous membranes pink and moist. No foreign body observed in the oral cavity. Patient is unable to tolerate secretions. NECK: Trachea midline. No JVD. CARDIOVASCULAR: Regular rate and rhythm. No murmur appreciated. RESPIRATORY: No accessory muscle use. Clear to auscultation. Breath sounds equal bilaterally. GASTROINTESTINAL: Abdomen soft, non-tender, nondistended. Hepatic and splenic margins not palpable. MUSCULOSKELETAL: No obvious deformities. No clubbing. No cyanosis. No edema. NEUROLOGICAL: Awake and alert. No obvious cranial nerve deficits. Motor grossly within normal limits. Normal speech. PSYCHIATRIC: Appropriate mood and affect; insight and judgment normal. Course Hospital Course: Patient was given glucagon and imaging studies have been ordered. Reevaluation(s) Reevaluation #2: No improvement. Patient still not able to tolerate secretions. He was notified that that he has to be admitted. Time: 10:50 Consultations Consultation #1: Dr Peggy DEAN recommends admission n.p.o. and they will taken to the endoscopy suite for retrieval. Time: 10:50 Initial Documented Vital Signs Temperature 97.8 F 12/14/17 06:41 Pulse Rate 85 12/14/17 06:41 Respiratory Rate 18 12/14/17 06:41 Blood Pressure 157/97 H 12/14/17 06:41 Pulse Oximetry 95 12/14/17 06:41 Last Documented Vital Signs Temperature 97.8 F 12/14/17 06:41 Pulse Rate 89 12/14/17 07:15 Respiratory Rate 16 12/14/17 07:15 Blood Pressure 146/65 H 12/14/17 07:15 Pulse Oximetry 100 12/14/17 07:15 Medical Decision Making MDM Narrative Medical decision making narrative: Patient with 2 metallic foreign bodies one within the posterior pharyngeal region and the other one upper esophagus at the level of the thyroid gland. Patient was unable to pass those with glucagon morphine. GI was consulted and recommends admission for retrieval in the endoscopy suite. Patient is hemodynamically stable able to protect his airway. No stridor or signs of airway compromise Medical Screen Exam Complete: Yes Emergency Medical Condition: Yes Lab Data Lab results reviewed: Yes I reviewed the patient's lab results. Result diagrams: 12/14/17 10:00 12/14/17 10:00 Lab Results 12/14/17 Range/Units 10:00 WBC 5.3 (4.0-11.0) th/mm3 RBC 5.19 (4.50-5.90) mil/mm3 Hgb 15.4 (13.0-17.0) gm/dL Hct 45.5 (39.0-51.0) % MCV 87.7 (80.0-100.0) fL MCH 29.7 (27.0-34.0) pg MCHC 33.9 (32.0-36.0) % RDW 13.3 (11.6-17.2) % Plt Count 278 (150-450) th/mm3 MPV 7.6 (7.0-11.0) fL Neut % (Auto) 56.3 (16.0-70.0) % Lymph % (Auto) 33.7 (9.0-44.0) % Rogers % (Auto) 8.7 H (0.0-8.0) % Eos % (Auto) 1.0 (0.0-4.0) % Baso % (Auto) 0.3 (0.0-2.0) % Neut # (Auto) 3.0 (1.8-7.7) th/mm3 Lymph # (Auto) 1.8 (1.0-4.8) th/mm3 Rogers # (Auto) 0.5 (0.0-0.9) th/mm3 Eos # (Auto) 0.1 (0.0-0.4) th/mm3 Baso # (Auto) 0.0 (0.0-0.2) th/mm3 WBC Differential . Differential Comment Auto diff final Imaging Data Radiologist's impression: Soft Tissue Neck CT 12/14/17 07:13 CONCLUSION: 1. Two metallic foreign bodies one within the posterior pharyngeal region and the other within the upper esophagus at the level of the thyroid gland. Endoscopy and retrieval recommended. Discharge Plan Discharge Disposition Patient Disposition: 30 Still Patient Discharge Condition Condition: Stable Discharge Details Diagnosis: Foreign body alimentary tract Physicians Team ED Provider: Wing Rodarte Primary Care Provider: Primary Care Physici,No Status ED Status: With Doctor
--- NOTE | 2017-12-14 08:38 | CT ---
EXAM DATE: 12/14/2017 8:26 AM EDT AGE/SEX: 52 years / Male INDICATIONS: Patient woke up feeling like something is stuck in throat CLINICAL DATA: This is the patient's initial encounter. Patient reports that signs and symptoms have been present for 1 day and indicates a pain score of 5/10. MEDICAL/SURGICAL HISTORY: None. None. RADIATION DOSE: 12.24 CTDI (mGy) COMPARISON: [facility], CT SOFT TISSUE NECK W CONTRAST, 10/21/2016. . TECHNIQUE: Helical acquisition was performed using a multirow detector CT scanner without contrast. Using automated exposure control and adjustment of the mA and/or kV according to patient size, radiat ion dose was kept as low as reasonably achievable to obtain optimal diagnostic quality images. DICOM format image data is available electronically for review and comparison. FINDINGS: Nasopharynx: The nasopharyngeal airway has a normal configuration. No mucosal thickening or mass is seen. Oropharynx: The intrinsic muscles of the tongue are symmetric. The tonsillar pillars are intact. T he prevertebral soft tissues are not thickened. Larynx: The supraglottic, glottic, and infraglottic structures are intact. Parapharyngeal: The parapharyngeal space is intact. Salivary Glands: The parotid and submandibular glands are intact. Lymph Nodes: No enlarged nodes. Thyroid: Grossly intact. Bones: Unremarkable. Other: There are 2 metallic foreign bodies seen 1 measuring approximately 11 mm and 15 posteriorly th e level of the vocal cords/aryepiglottic folds. There is also a second curvilinear metallic density s een along the upper esophagus at the level of the thyroid gland which may be lodged into the adjacent soft tissues. CONCLUSION: 1. Two metallic foreign bodies one within the posterior pharyngeal region and the other within the u pper esophagus at the level of the thyroid gland. Endoscopy and retrieval recommended. Electronically signed by: Fermín Dexter MD 12/14/2017 8:37 AM EDT
[2017-12-14] MEDS ORDERED: Morphine Inj 4 MG/ML Vial IV.PUSH ONE (08:55)
[2017-12-14 11:27] LABS: Baso % (Auto) 0.3 % (0.0-2.0); Eos # (Auto) 0.1 th/mm3 (0.0-0.4); Hematocrit 45.5 % (39.0-51.0); Hemoglobin 15.4 gm/dL (13.0-17.0); Lymph # (Auto) 1.8 th/mm3 (1.0-4.8); Lymph % (Auto) 33.7 % (9.0-44.0); Mean Corpuscular HGB Conc 33.9 % (32.0-36.0); Mean Corpuscular Hemoglobin 29.7 pg (27.0-34.0); Mean Corpuscular Volume 87.7 fL (80.0-100.0); Mean Platelet Volume 7.6 fL (7.0-11.0); Mono # (Auto) 0.5 th/mm3 (0.0-0.9); Mono % (Auto) 8.7 % (0.0-8.0); Neut % (Auto) 56.3 % (16.0-70.0); Platelet Count 278 th/mm3 (150-450); Red Blood Count 5.19 mil/mm3 (4.50-5.90); Red Cell Distribution Width 13.3 % (11.6-17.2); White Blood Count 5.3 th/mm3 (4.0-11.0)
[2017-12-14 11:36] LABS: Activated Partial Thrombo Time 27.7 sec (24.3-30.1); INR 1.2 Ratio
--- NOTE | 2017-12-14 11:37 | P.HPFP ---
History of Present Illness Primary Care Physician: No Primary Care Physician <Cleo Kulkarni - 12/14/17 20:47> No Primary Care Physician <Viet Guevara - 12/14/17 12:25> History of Present Illness: This is a 52 y/o male who was in his usual state of health until this morning when he awoke with the feeling of a "metal object in my throat." In ED, patient underwent soft tissue/neck CT, which revealed 2 metallic foreign bodies--one within the posterior pharyngeal region and the other one in upper esophagus at the level of the thyroid gland. He received glucagon and morphine without passage, so GI was consulted and recommended admission for retrieval in the endoscopy suite. Upon visit, he is a poor historian. He reports constant discomfort that "something is stuck", which is exacerbated by movement of his neck region. Patient does not know how the object got there, stating that he didn't intentionally swallow anything. 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 The sensation and his discomfort are unchanged. He endorses discomfort with breathing and swallowing, but denies difficulty with air movement, chest pain, palpitations, or fever. PmHx: Denies any medical problems, including strictures or webs. Chart review reveals visit in 2017 involving tonsillar mass biopsy that returned as squamous tonsillar tissue with acute on chronic inflammatory infiltrate (benign). PSurgHx: Denies FmHx: Denies SocHx: Denies tobacco, EtOH, recreational drug use; although admitted to recreational marijuana use to ED provider Medications: Denies <Viet Guevara - 12/14/17 16:58> - Diagnosis (1) Foreign body alimentary tract <Viet Guevara 12/14/17 17:48> Inpatient Certification: I certify that the inpatient services were ordered in accordance with Medicare regulations governing the order. This includes certification that hospital inpatient services are reasonable and necessary and in the case of services not specified as inpatient-only under 42 CFR 419.22(n), that they are appropriately provided as inpatient services in accordance to with the 2-midnight benchmark under 43 CFR 412.3(e) <Cleo Kulkarni 12/14/17 20:47> Plans for Post Hospital Care: Not yet determined <Viet Guevara 12/14/17 16 :26> Review of Systems All other systems reviewed negative except as stated in HPI, unobtainable due to mental condition <Viet Guevara 12/14/17 12:25> Ears, Nose, Mouth, and Throat: Reports difficulty swallowing <Viet Guevara 12/14/17 16:26> Cardiovascular: Reports shortness of breath, Denies chest pain <Viet Guevara 12/14/17 16:26> PMFSH - History History Provided By: Patient <Viet Guevara 12/14/17 11:37> - Medical / Surgical Hx Neg / Unobtainable Medical Problems Denied: Yes <Viet Guevara 12/14/17 16:26> - Medical History Medical History: Medical History (Last Reviewed 12/14/17 @ 07:15 by Wing Rodarte DO) No pertinent past medical history (Acute) <Cleo Kulkarni 12/14/17 20:47> Medical History (Last Reviewed 12/14/17 @ 07:15 by Wing Rodarte DO) No pertinent past medical history (Acute) <Viet Guevara 12/14/17 11:37> - Surgical History Surgical History: Surgical History (Last Reviewed 12/14/17 @ 07:15 by Wing Rodarte DO) No pertinent past surgical history (Acute) <Cleo Kulkarni 12/14/17 20:47> Surgical History (Last Reviewed 12/14/17 @ 07:15 by Wing Rodarte DO) No pertinent past surgical history (Acute) <Viet Guevara 12/14/17 11:37> - Tobacco History Second Hand Smoke Exposure: No <Viet Guevara 12/14/17 11:37> Tobacco Use In Past 30 Days: Yes <Viet Guevara 12/14/17 11:37> Smoking Status: Light tobacco smoker <Viet Guevara 12/14/17 11:37> Tobacco Type: Cigarettes <Viet Guevara 12/14/17 11:37> - Alcohol History How Often Do You Have a Drink Containing Alcohol: Never <Paola,Viet - 07/28 11:37> - Substance Use History Substance History: Active Abuse <PaolaViet moreira 12/14/17 11:37> - Substance Use Type Marijuana Status: Active <Viet Guevara 12/14/17 11:37> Route Used: Inhalation <Paola,Bryce 12/14/17 11:37> Reason for Use: Calm Down, Get High <Viet Guevara 12/14/17 11:37> - Travel History Recent Travel in the [facility] Within the Last 8 Weeks: No <Viet Guevara 11:37> Recent Travel Out of the Country Within the Last 8 Weeks: No <Viet Guevara 12/14/17 11:37> - Immunization History Tetanus Immunization: Unsure <Viet Guevara 12/14/17 11:37> Hx Influenza Vaccine This Season: No <Viet Guevara 12/14/17 11:37> Medications and Allergies Allergies Allergy/AdvReac Type Severity Reaction Status Date / Time No Known Allergies Allergy Unverified 12/14/17 06:41 <Cleo Kulkarni - 12/14/17 20:47> Exam Vital signs: Vital Signs 12/14/17 06:41 12/14/17 07:15 12/14/17 08:00 Temperature 97.8 F Pulse Rate 85 89 92 H Respiratory Rate 18 16 16 Blood Pressure 157/97 H 146/65 H 178/87 H Pulse Oximetry 95 100 12/14/17 09:00 12/14/17 09:42 12/14/17 10:00 Temperature Pulse Rate 88 86 Respiratory Rate 18 18 15 Blood Pressure 139/84 139/96 H Pulse Oximetry 98 12/14/17 11:00 12/14/17 11:30 12/14/17 14:23 Temperature Pulse Rate 86 86 Respiratory Rate 16 20 Blood Pressure 151/102 H 150/98 H Pulse Oximetry 100 12/14/17 14:30 12/14/17 14:45 12/14/17 15:00 Temperature Pulse Rate 88 89 84 Respiratory Rate 16 16 16 Blood Pressure 159/73 H 162/79 H 160/74 H Pulse Oximetry 96 96 96 12/14/17 15:15 12/14/17 15:30 12/14/17 15:45 Temperature 97.8 F Pulse Rate 83 80 81 Respiratory Rate 16 16 16 Blood Pressure 153/77 H 154/76 H 151/76 H Pulse Oximetry 97 97 98 Intake & Output 12/14/17 12/14/17 12/15/17 06:59 18:59 06:59 Intake Total 800 / 800 Balance 800 / 800 Weight 56.699 kg Intake: Anesthesia Amount 800 / 800 <Cleo Kulkarni - 12/14/17 20:47> Vital Signs 12/14/17 06:41 12/14/17 07:15 Temperature 97.8 F Pulse Rate 85 89 Respiratory Rate 18 16 Blood Pressure 157/97 H 146/65 H Pulse Oximetry 95 100 Intake & Output 12/13/17 12/14/17 12/14/17 18:59 06:59 18:59 Weight 56.699 kg <Viet Guevara 12/14/17 16:31> - Constitutional moderate distress, cachectic [facility]> Comments: Temporal wasting noted [facility] 12/14/17 16:31> - Routine HEENT Exam Head: Present: normocephalic, atraumatic [facility] 12/14/17 16:31> Eye: Absent: conjunctival icterus <Viet Guevara 12/14/17 16:31> - Routine Neck Exam Present: tenderness, trachea midline. Absent: swelling, tracheal deviation < Viet Guevara 12/14/17 16:31> - Routine Respiratory Exam Present: CTA bilaterally. Absent: accessory muscle use, rales, rhonchi, stridor , wheezes, crackles <Viet Guevara 12/14/17 16:31> - Routine Cardiovascular Exam Present: RRR, S1, S2. Absent: murmur, gallop, rubs <Viet Guevara 16:31> - Routine Abdominal Exam Present: soft. Absent: tenderness, distended <Viet Guevara 12/14/17 16:31 > - Routine Neurological Exam Present: alert [facility] 12/14/17 16:31> Difficult to ascertain Neurologic status, as patient was poor historian and minimally compliant with questions <Viet Guevara - 12/14/17 16:31> Results - Labs Result diagrams: 12/14/17 10:00 12/14/17 10:00 <Cleo Kulkarni - 12/14/17 20:47> Abnormal lab results 12/14/17 12/14/17 12/14/17 Range/Units 10:00 10:00 10:00 [place] % (Auto) 8.7 H (0.0-8.0) % PT 12.0 H (9.8-11.6) sec Estimated GFR 75 L (>89) mL/min Short CBC 12/14/17 Range/Units 10:00 WBC 5.3 (4.0-11.0) th/mm3 Hgb 15.4 (13.0-17.0) gm/dL Hct 45.5 (39.0-51.0) % Plt Count 278 (150-450) th/mm3 [facility] 12/14/17 10:00 Sodium 141 Potassium 4.4 Chloride 104 Carbon Dioxide 30.3 BUN 12 Creatinine 1.03 Calcium 9.0 Cardiac Enzymes 12/14/17 Range/Units 10:00 Total Creatine Kinase 103 (39-308) U/L <Cleo Kulkarni - 12/14/17 20:47> Abnormal lab results 12/14/17 12/14/17 Range/Units 10:00 10:00 [place] % (Auto) 8.7 H (0.0-8.0) % PT 12.0 H (9.8-11.6) sec Short CBC 12/14/17 Range/Units 10:00 WBC 5.3 (4.0-11.0) th/mm3 Hgb 15.4 (13.0-17.0) gm/dL Hct 45.5 (39.0-51.0) % Plt Count 278 (150-450) th/mm3 <Viet Guevara - 12/14/17 11:37> - Imaging Impressions Soft Tissue Neck CT 12/14/17 07:13 CONCLUSION: 1. Two metallic foreign bodies one within the posterior pharyngeal region and the other within the upper esophagus at the level of the thyroid gland. Endoscopy and retrieval recommended. <Cleo Kulkarni 12/14/17 20:47> Impressions Soft Tissue Neck CT 12/14/17 07:13 CONCLUSION: 1. Two metallic foreign bodies one within the posterior pharyngeal region and the other within the upper esophagus at the level of the thyroid gland. Endoscopy and retrieval recommended. <Viet Guevara - 12/14/17 11:37> Caprini VTE Risk Assessment Caprini VTE Risk Assessment: Moderate/High Risk (score >= 2) (+1 (52 y/o) +1 ( minor surgery)) <Viet Guevara - 12/14/17 17:06> Caprini Risk Assessment Model: Point Value = 1 Point Value = 2 Point Value = 3 Point Value = 5 Age 41-60 Minor surgery BMI > 25 kg/m2 Swollen legs Varicose veins or History of unexplained or recurrent spontaneous Oral contraceptives or hormone replacement Sepsis (< 1 month) Serious lung disease, including pneumonia (< 1 month) Abnormal pulmonary function Acute myocardial infarction Congestive heart failure (< 1 month) History of inflammatory bowel disease Medical patient at bed rest Age 61-74 Arthroscopic surgery Major open surgery (> 45 min) Laparoscopic surgery (> 45 min) Malignancy Confined to bed (> 72 hours) Immobilizing plaster cast Central venous access Age >= 75 History of VTE Family history of VTE Factor V Leiden Prothrombin [id number] Lupus anticoagulant Anticardiolipin antibodies Elevated serum homocysteine Heparin-induced thrombocytopenia Other congenital or acquired thrombophilia Stroke (< 1 month) Elective arthroplasty Hip, pelvis, or leg fracture Acute spinal cord injury (< 1 month) <Cleo Kulkarni - 12/14/17 20:47> Point Value = 1 Point Value = 2 Point Value = 3 Point Value = 5 Age 41-60 Minor surgery BMI > 25 kg/m2 Swollen legs Varicose veins or History of unexplained or recurrent spontaneous Oral contraceptives or hormone replacement Sepsis (< 1 month) Serious lung disease, including pneumonia (< 1 month) Abnormal pulmonary function Acute myocardial infarction Congestive heart failure (< 1 month) History of inflammatory bowel disease Medical patient at bed rest Age 61-74 Arthroscopic surgery Major open surgery (> 45 min) Laparoscopic surgery (> 45 min) Malignancy Confined to bed (> 72 hours) Immobilizing plaster cast Central venous access Age >= 75 History of VTE Family history of VTE Factor V Leiden Prothrombin [id number] Lupus anticoagulant Anticardiolipin antibodies Elevated serum homocysteine Heparin-induced thrombocytopenia Other congenital or acquired thrombophilia Stroke (< 1 month) Elective arthroplasty Hip, pelvis, or leg fracture Acute spinal cord injury (< 1 month) <Viet Guevara - 12/14/17 16:58> Prophylaxis Regimen: Total Risk Factor Score Risk Level Prophylaxis Regimen 0-1 Low Early ambulation 2 Moderate Order ONE of the following: *Sequential Compression Device (SCD) *Heparin 5000 units SQ BID 3-4 Higher Order ONE of the following medications: *Heparin 5000 units SQ TID *Enoxaparin/Lovenox 40 mg SQ daily (WT < 150 kg, CrCl > 30 mL/min) *Enoxaparin/Lovenox 30 mg SQ daily (WT < 150 kg, CrCl > 10-29 mL/min) *Enoxaparin/Lovenox 30 mg SQ BID (WT < 150 kg, CrCl > 30 mL/min) AND/OR *Sequential Compression Device (SCD) 5 or more Highest Order ONE of the following medications: *Heparin 5000 units SQ TID (Preferred with Epidurals) *Enoxaparin/Lovenox 40 mg SQ daily (WT < 150 kg, CrCl > 30 mL/min) *Enoxaparin/Lovenox 30 mg SQ daily (WT < 150 kg, CrCl > 10-29 mL/min) *Enoxaparin/Lovenox 30 mg SQ BID (WT < 150 kg, CrCl > 30 mL/min) AND *Sequential Compression Device (SCD) <Cleo Kulkarni - 12/14/17 20:47> Total Risk Factor Score Risk Level Prophylaxis Regimen 0-1 Low Early ambulation 2 Moderate Order ONE of the following: *Sequential Compression Device (SCD) *Heparin 5000 units SQ BID 3-4 Higher Order ONE of the following medications: *Heparin 5000 units SQ TID *Enoxaparin/Lovenox 40 mg SQ daily (WT < 150 kg, CrCl > 30 mL/min) *Enoxaparin/Lovenox 30 mg SQ daily (WT < 150 kg, CrCl > 10-29 mL/min) *Enoxaparin/Lovenox 30 mg SQ BID (WT < 150 kg, CrCl > 30 mL/min) AND/OR *Sequential Compression Device (SCD) 5 or more Highest Order ONE of the following medications: *Heparin 5000 units SQ TID (Preferred with Epidurals) *Enoxaparin/Lovenox 40 mg SQ daily (WT < 150 kg, CrCl > 30 mL/min) *Enoxaparin/Lovenox 30 mg SQ daily (WT < 150 kg, CrCl > 10-29 mL/min) *Enoxaparin/Lovenox 30 mg SQ BID (WT < 150 kg, CrCl > 30 mL/min) AND *Sequential Compression Device (SCD) <Viet Guevara - 12/14/17 11:37> Assessment and Plan - Assessment (1) Foreign body alimentary tract Code(s): T18.9XXA - Foreign body of alimentary tract, part unspecified, initial encounter Status: Acute Plan: Patient is a 52 y/o male without significant past medical history in moderate discomfort who has metallic object(s?) lodged in his upper alimentary tract since this morning. He was admitted to our service from the ED in a hemodynamically stable state, not showing signs of airway compromise. GI was consulted and retrieved a partial denture that was lodged in his hypopharynx in the endoscopy suite. The procedure went without complication and he tolerated anesthesia and recovery well. He is without other complaints and will be discharged with recommendation to remove denture prior to slumber. <iVet Guevara - 12/14/17 17:48> - Attending Attestation Patient left against medical advise prior to me being able to examine or interview him. <Cleo Kulkarni - 12/14/17 20:47>
[2017-12-14] MEDS ORDERED: Sod Chloride 0.9% Inj 1,000 ML IV.SIG ONE (11:40)
[2017-12-14 11:42] LABS: Carbon Dioxide 30.3 meq/L (21.0-32.0); Potassium 4.4 meq/L (3.5-5.1)
[2017-12-14] MEDS ORDERED: Bisacodyl 10 MG Supp RECTAL PRN (13:23)
[2017-12-14] MEDS ORDERED: Acetaminophen 325 MG Tablet PO PRN (13:23)
[2017-12-14] MEDS ORDERED: Lidocaine PF 1% Inj 5 ML Syringe INFILTRATN ONE (13:30)
[2017-12-14] MEDS ORDERED: Succinylcholine Inj 100 MG/5 ML Syringe IV.PUSH ONE (13:30)
[2017-12-14] MEDS ORDERED: Sod Chloride 0.9% Inj 1,000 ML IV.CONT SCH (13:30)
--- NOTE | 2017-12-14 14:07 | GIPROC ---
[facility] [address] [facility]. [facility], [address] EGD PROCEDURE REPORT EXAM DATE: 12/14/2017 PATIENT NAME: David Mac MR #: [id number] BIRTHDATE: 1965 ATTENDING: Janell Woods MD ORDER #: [id number] HAND LAMINATOR: Brittney Frost Powers, Victoria, Faria, Juan, and Naa Payan STATUS: inpatient INDICATIONS: The patient is a 52 yr old male here for an EGD due to foreign body removal PROCEDURE PERFORMED: EGD w/ fb removal MEDICATIONS: None and Per Anesthesia. TOPICAL ANESTHETIC: none CONSENT: The patient understands the risks and benefits of the procedure and understands that these risks include, but are not limited to: sedation, allergic reaction, infection, perforation and/or bleeding. Alternative means of evaluation and treatment include, among others: physical exam, x-rays, and/or surgical intervention. The patient elects to proceed with this endoscopic procedure. medical equipment was checked for proper function. Hand hygiene and appropriate measures for infection prevention was taken. After the risks, benefits and alternatives of the procedure were thoroughly explained, Informed consent was verified, confirmed and timeout was successfully executed by the treatment team. The patient was anesthetized with topical anesthesia and the Pentax [id number] endoscope was introduced through the mouth and advanced to the second portion of the duodenum. Retroflexion was performed and was normal The gastroscope was then slowly withdrawn and removed. ESOPHAGUS: Denture impacted in the upper esophagus, removed by quadpod. The esophagus was otherwise normal. STOMACH: The mucosa of the stomach appeared normal. DUODENUM: The duodenal mucosa appeared normal in the duodenal bulb, 2nd part duodenum, and 3rd part duodenum. ADVERSE EVENTS: There were no complications. IMPRESSIONS: 1. Denture impacted in the upper esophagus, removed by quadpod 2. The esophagus was otherwise normal 3. The mucosa of the stomach appeared normal 4. Normal duodenal mucosa in the duodenal bulb, 2nd part duodenum, and 3rd part duodenum 5. Retroflexion was performed and was normal RECOMMENDATIONS: No treatment PATIENT CONDITION: stable DISPOSITION: Observation REPEAT EXAM: NONE Janell Woods MD eSigned: Janell Woods MD 12/14/2017 2:06 PM cc: PATIENT NAME: David Mac MR#: [id number]
[2017-12-14] MEDS ORDERED: Metoprolol Tartrate 25 MG Tablet PO ONE (14:27)
[2017-12-14] MEDS ORDERED: Chlorhexidine Gluconate 2% 1 Pack (2 Cloths) TOPICAL ONE (14:27)
[2017-12-14] MEDS ORDERED: *Meperidine Inj 25 MG/ML Vial PERIprocedural Use ONLY ONE (14:43)
[2017-12-14] MEDS ORDERED: Sodium Chlor 0.9% Inj 500 ML IV.SIG SCH (15:00)
[2017-12-14 16:07] VITALS: BP 151/76; PULSE 81; RESP 16; O2SAT 98
--- NOTE | 2017-12-15 13:23 | ECG ---
Date Performed: 12/14/2017 Time Performed: 12:48:27 PTAGE: 52 years EKG: Sinus rhythm POSSIBLE LEFT ATRIAL ENLARGEMENT MARKED LEFT AXIS DEVIATION LEFT BUNDLE BRANCH BLOCK ABNORMAL ECG NO PREVIOUS TRACING DOCTOR: Capo Villegas Interpretating Date/Time 12/15/2017 13:22:08
== END 2017-12-14 16:33 | disposition left against medical advice (07) ==
LOC: NEDA 06:38 → NEPC 06:38 → NEDA 12:30 → N07 15:56
PROVIDERS: ADMIT Family Medicine; ATTEND Family Medicine